=== PATIENT | male | born 1975 | race Caucasian/White ===

== ENCOUNTER 2018-08-02 20:39 | Emergency (ER) | payer OTHER ==
[2018-08-02 20:48] VITALS: RESP 18; O2SAT 100
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
[2018-08-02 21:24] VITALS: BP 111/62; PULSE 50; TEMP 98.2
== END 2018-08-02 21:26 | disposition home or self-care (01) ==
LOC: H.ER 20:39
DX: S16.1XXA Strain of muscle, fascia and tendon at neck level, initial encounter (principal); V43.52XA Car driver injured in collision with other type car in traffic accident, initial encounter; Y92.410 Unspecified street and highway as the place of occurrence of the external cause

== ENCOUNTER 2018-08-03 15:06 | Emergency (ER) | payer OTHER ==
[2018-08-03 15:15] VITALS: BP 139/75; PULSE 60; RESP 16; TEMP 98.4; O2SAT 100
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
== END 2018-08-03 16:49 | disposition home or self-care (01) ==
LOC: H.ER 15:06
DX: S13.4XXA Sprain of ligaments of cervical spine, initial encounter (principal); S16.1XXA Strain of muscle, fascia and tendon at neck level, initial encounter; V89.2XXA Person injured in unspecified motor-vehicle accident, traffic, initial encounter